=== PATIENT | female | born 1950 | race Caucasian/White ===

== ENCOUNTER → 2017-01-12 | Outpatient (CLI) | payer BC, MEDICARE ==
[~2017-01-12] MED LIST: ASPI325T PO; CA C1TAB89 PO; ERGO400T3 PO; FLUT9.9S NS; GLUC1CAP25 PO; HYDR-4246 PO; LORA10TA62 PO; LOSA50TA52 PO; MELO7.5T12 PO; OMEP20CA10 PO; ONDA4TAB4 PO
== END ==
LOC: WC.BC 10:47
DX: Z12.31 Encounter for screening mammogram for malignant neoplasm of breast (principal)
CPT/HCPCS: 77063; G0202